=== PATIENT | male | born 1950 | race African-American/Black ===

== ENCOUNTER 2016-06-11 20:21 | Inpatient (IN) | payer MEDICARE ==
[~2016-06-11] VITALS: Ht 172.7 cm; Wt 62.5 kg
[~2016-06-11 20:21] MED LIST: ACETAMINOPHEN500 M1 PO; ASPIRIN81 MG; AZOPT 1% OPHT D10 ML EACH EYE; BETIMOL15 ML EACH EYE; CALMOSEPTINE OI71 GM TOPICAL; CARDURA2 MG PO; CELLCEPT250 MG PO; CLARITIN 10 MG10 MG PO; COMBIGAN OPHT DR5 ML EACH EYE; COREG 3.1253.125 MG PO; FAMOTIDINE10 MG; FAMOTIDINE10 MG PO; GLUCAGEN1 MG/VIAL; GLUCAGEN1 MG/VIAL PO; HUMULIN N100 U/ML SC; HYDRALAZINE HCL25 MG PO; IMODIUM2 MG PO; K-DUR20 MEQ PO; LASIX80 MG PO; LEVEMIR100 U/M1; LEVEMIR100 U/M1 SC; MAG-OX 400 MG400 MG PO; MEGACE40 MG PO; METOCLOPRAM5 MG/5 ML PO; METOLAZONE5 MG PO; MIDODRINE HCL5 MG PO; MUPIROCIN22 GM TOPICAL; NEPHRO-VITE RX1 TAB PO; NOVOLIN N100 U/ML SC; NOVOLIN N100 U/ML SQ; NOVOLOG100 U/M1 SC; PHOSLO667 MG PO; PLAVIX75 MG PO; REGLAN5 MG PO; REMERON15 MG PO; RENVELA0.8 GM PO; RENVELA800 MG PO; SODIUM BICARBO325 MG PO; SYSTANE 0.3-0.4%5 ML EACH EYE; TACROLIMUS ANHYD1 MG PO; XALATAN 0.0052.5 ML EACH EYE; ZOCOR10 MG PO; ZOLOFT25 MG PO
[2016-06-11 22:00] VITALS: BP 131/48
--- NOTE | 2016-06-11 22:20 | NUR ---
PT ARRIVED VIA BED WITH EMS STAFF. DISORIENTED TO PLACE, TIME, AND SITUATION. FOLLOWS COMMANDS, EXPERIENCES PERIODS OF CONFUSION. VSS, SBP 110-120'S. LT ARM FISTULA CDI WITH BRUIT AND THRILL PRESENT. LT IJ CDI. LT HAND WITH ALL FINGERS MISSING EXCEPT THUMB. BILATERAL LEG AMPUTATION. PT REPOSITIONED FOR COMFORT. DENIES PAIN AT THIS TIME. VOICES NO FURTHER NEEDS. ROOM VISIBLE FROM NURSES STATION. CPOC.
[2016-06-11 22:21] VITALS: BP 106/45; BMI 29.9
[2016-06-11 23:00] VITALS: BP 134/53
[2016-06-11 23:55] LABS: BASOPHILS 0.1 % (0.0-2.0); EOSINOPHILS 0.3 % (0-7); HEMATOCRIT 31.1 % (42.0-54.0); HEMOGLOBIN 9.7 g/dL (13.5-17.5); IMMATURE GRANULOCYTES 0.2 % (0-5); LYMPHOCYTES 12.6 % (15-50); MCH 23.7 pg (26.0-34.0); MCHC 31.2 g/dL (31.0-37.0); MEAN PLATELET VOLUME 8.7 fL (7.4-10.4); MONOCYTES 11.1 % (2-11); NEUTROPHILS 75.7 % (40-80); PLATELET COUNT 215 10x3/uL (130-400); RBC 4.09 10x6/uL (4.20-6.10); WBC 8.8 10x3/uL (4.8-10.8)
[2016-06-12] VITALS (24 sets, daily range): BP systolic 106–174; BP diastolic 39–129; Ht 172.7 cm; Wt 62.5 kg
[2016-06-12 00:24] LABS: ALBUMIN 2.1 g/dL (3.4-5.0); ANION GAP 15.3 mmol/L (8-16); BILIRUBIN - TOTAL 0.62 mg/dL (0.2-1.3); CALCIUM 7.4 mg/dL (8.5-10.1); CARBON DIOXIDE 25.1 mmol/L (21.0-32.0); CREATININE - SERUM 2.5 mg/dL (0.6-1.3)
[2016-06-12 00:25] LABS: POTASSIUM - SERUM 2.4 mmol/L (3.5-5.1)
--- NOTE | 2016-06-12 00:45 | NUR ---
REC'D CALLBACK FROM LINDSEY REGARDING RECENT LAB RESULTS, NEW ORDERS REC'D.
--- NOTE | 2016-06-12 01:40 | NUR ---
PT SLEEPING QUIETLY WITH NO S/S OF ACUTE DISTRESS. VSS, SBP 120-130'S. NO S/S OF PAIN. PT REPOSITIONED TO R SIDE. VOICES NO FURTHER NEEDS AT THIS TIME. CPOC.
--- NOTE | 2016-06-12 05:25 | NUR ---
PT RESTING QUIETLY WITH VSS, NO C/O PAIN AT THIS TIME. PT REPOSITIONED TO L SIDE. DENIES FURTHER NEEDS AT THIS TIME. ROOM VISIBLE FROM NURSES STATION. CPOC.
[2016-06-12 06:05] LABS: CALCIUM 7.8 mg/dL (8.5-10.1); CARBON DIOXIDE 23.7 mmol/L (21.0-32.0); CREATININE - SERUM 2.6 mg/dL (0.6-1.3)
[2016-06-12 06:06] LABS: POTASSIUM - SERUM 2.7 mmol/L (3.5-5.1)
[2016-06-12 11:02] LABS: ANION GAP 13.4 mmol/L (8-16); CALCIUM 7.5 mg/dL (8.5-10.1); CARBON DIOXIDE 24.5 mmol/L (21.0-32.0); CREATININE - SERUM 2.9 mg/dL (0.6-1.3)
[2016-06-12 11:10] LABS: POTASSIUM - SERUM 2.9 mmol/L (3.5-5.1)
--- NOTE | 2016-06-12 14:10 | NUR ---
REPORTED K LEVEL OF 2.[address] PORTILLO. ORDERS REC'D FOR KCL 40 MEQ IV X1 DOSE.
--- NOTE | 2016-06-12 15:35 | NUR ---
AWAKES EASILY TO VERBAL STIMULI, SKIN WARM AND DRY. HAS LEGS ON LOWER LEGS. REMOVED LEGS. NO OPEN SKIN AREAS NOTED. ABLE TO HELP FEED SELF. PATIENT IS LEGALLY BLIND, USES HANDS TO FEEL AND FIND FOOD AND FLUIDS TO DRINK. COOPERATIVE. LEFT UPPER ARM FISTUAL DRESSING DRY AND INTACT. BRUIT AUDIBLE. RIGHT WITH OUT FINGERS DOES HAVE THUMB. ASSIST WITH TURNING SELF FROM SIDE. NO URINE MADE AT THIS TIME. ABD SOFT WITH HYPOACTIVE BOWEL SOUNDS. LUNGS CONGESTED BUT GOOD PRODUCTIVE COUGH NOTED. MONITOR SR WITH MULTIPLE PVC AND PAC. DENIES ANY PAIN.
--- NOTE | 2016-06-12 16:53 | NUR ---
FEED ALL MEALS CAN ASSIST SOME. LEFT UPPER ARM FISTULA WITH GOOD BRUIT. MONITOR SR DOES HAVE FREQ PVC AND PAC. ASSIST WITH TURNING. NO DISTRESS. GOOD COUGH WET. GOOD APPETITE. NAPPING THIS AFTERNOON. NO DISTRESS. RESP DEEP AND REGULAR.
--- NOTE | 2016-06-12 19:33 | NUR ---
PT AOX4, DOES HAVE SOME BRIEF PERIODS OF CONFUSION. VSS, DENIES PAIN. PT REPOSITIONED FOR COMFORT. LUNG SOUNDS CRACKLES/DIMINISHED. SPO2 97 ON 1L NC. NO S/S OF ACUTE DISTRESS AT THIS TIME. FRESH WATER TO BEDSIDE. VOICES NO FURTHER NEEDS AT THIS TIME. CALL LIGHT AND BEDSIDE TABLE WITHIN PT REACH. CPOC.
--- NOTE | 2016-06-12 21:30 | NUR ---
NO VISITORS AT THIS TIME. VSS, NO C/O PAIN. PT REPOSITIONED FOR COMFORT WITH A PARTIAL LINEN CHANGE COMPLETE. RESTING COMFORTABLY AT THIS TIME WITH NO FURTHER NEEDS VOICED. ROOM VISIBLE FROM NURSES STATION. CPOC.
--- NOTE | 2016-06-12 23:35 | NUR ---
REASSESSMENT COMPLETE, SEE FLOWSHEET FOR ALL FINDINGS. NO CHANGES NOTED AT THIS TIME. VSS, DENIES PAIN. REPOSITIONED TO L SIDE. DENIES FURTHER NEEDS AT THIS TIME. ROOM VISIBLE FROM NURSES STATION. CPOC.
[2016-06-13] VITALS (10 sets, daily range): BP systolic 100–146; BP diastolic 44–68
--- NOTE | 2016-06-13 01:35 | NUR ---
PT SLEEPING QUIETLY WITH VSS, NO S/S OF ACUTE DISTRESS. NO CHANGES AT THIS TIME. ROOM VISIBLE FROM NURSES STATION. CPOC.
[2016-06-13 04:54] LABS: BASOPHILS 0.2 % (0.0-2.0); EOSINOPHILS 1.6 % (0-7); HEMATOCRIT 32.6 % (42.0-54.0); HEMOGLOBIN 10.1 g/dL (13.5-17.5); IMMATURE GRANULOCYTES 0.2 % (0-5); LYMPHOCYTES 40.1 % (15-50); MCH 23.4 pg (26.0-34.0); MCV 75.5 fL (80.0-100.0); MEAN PLATELET VOLUME 9.3 fL (7.4-10.4); MONOCYTES 12.2 % (2-11); NEUTROPHILS 45.7 % (40-80); PLATELET COUNT 227 10x3/uL (130-400); RBC 4.32 10x6/uL (4.20-6.10); RDW 18.8 % (11.5-14.5); WBC 5.5 10x3/uL (4.8-10.8)
[2016-06-13 05:13] LABS: ANION GAP 10.7 mmol/L (8-16); CALCIUM 7.3 mg/dL (8.5-10.1); CREATININE - SERUM 3.1 mg/dL (0.6-1.3); MAGNESIUM - SERUM 1.7 mg/dL (1.8-2.4); PHOSPHOROUS 1.8 mg/dL (2.5-4.9)
[2016-06-13 05:15] LABS: POTASSIUM - SERUM 2.7 mmol/L (3.5-5.1)
--- NOTE | 2016-06-13 06:00 | NUR ---
CRITICALLY LOW K+ 2.7, LINDSEY PAGED.
--- NOTE | 2016-06-13 06:13 | NUR ---
REC'D CALLBACK FROM TRISTAN PORTILLO REC'D.
--- NOTE | 2016-06-13 09:52 | NUR ---
ATTEMPTED TO COLLECT URINE VIA IN AND OUT COLLECTION, EXPLAINED TO PAT AND HE REFUSED STATING, " I DONT LET THEM DO THAT, ITS TOO HARD, I TOLD THEM THAT LAST NIGHT". WILL CONT TO NADIRA KOHLI.
--- NOTE | 2016-06-13 10:15 | NUR ---
0700 RECEIVED PT LYING IN BED ON BACK OPENS EYES TO SPEECH, PT IS BLIND, ALERT ORIENTED ABLE TO VOICE ALL WANTS AND NEEDS ANSWERS QUESITONS APPROPRIATELY. LUNGS CLEAR TO AUSC, HAS A COUGH NO SPUTUM NOTED. VSS 02 SATS 98% ON 1L NC. LEFT IJ WITH A K+ RIDER INFUSING. NO COMPLAINTS, HAS TRANSFER ORDERS TO BE MOVED TO THE FLOOR. WILL CONT TO MONITOR CLOSELY.
[2016-06-13 11:36] LABS: ANION GAP 10.8 mmol/L (8-16); CALCIUM 7.6 mg/dL (8.5-10.1); CARBON DIOXIDE 24.4 mmol/L (21.0-32.0); CREATININE - SERUM 3.3 mg/dL (0.6-1.3)
[2016-06-13 11:37] LABS: POTASSIUM - SERUM 4.2 mmol/L (3.5-5.1)
--- NOTE | 2016-06-13 15:00 | NUR ---
RECEIVED BED ON 2105, PT HAD BATH AND LINENS CHANGED, REPORT CALLED TO CAT ALL QUESTIONS ANSWERED PT MOVED TO THE FLOOR NO COMPLAINTS AND NO DISTRESS NOTED.
--- NOTE | 2016-06-13 20:13 | NUR ---
RESUMED CARE OF PT, LYING IN BED WITH EYES CLOSED RESPIRATIONS EVEN AND UNLABOREDON 1LPM VIA NC. 78 SR ON TELEMETRY. LEFT IJ SALINE LOCKED. CALL LIGHT IN REACH. WILL CONTINUE TO MONITOR. SEE NURSE ASSESSMENT.
[2016-06-14] VITALS (7 sets, daily range): BP systolic 114–136; BP diastolic 45–62
--- NOTE | 2016-06-14 02:46 | NUR ---
BED BATH AND LINENS CHANGED. PROSTHETICS REMOVED AND PLACED IN WINDOW TEN. REPOSITIONED TO RIGHT SIDE. CALL LIGHT IN REACH. WILL CONTINUE TO MONITOR.
--- NOTE | 2016-06-14 05:55 | NUR ---
AM LAB OBTAINED, NO CHANGES FROM PREVIOUS ASSESSMENT.
[2016-06-14 05:56] LABS: BASOPHILS 0.2 % (0.0-2.0); EOSINOPHILS 1.1 % (0-7); HEMATOCRIT 31.5 % (42.0-54.0); HEMOGLOBIN 9.7 g/dL (13.5-17.5); IMMATURE GRANULOCYTES 0.2 % (0-5); LYMPHOCYTES 42.3 % (15-50); MCH 23.6 pg (26.0-34.0); MCHC 30.8 g/dL (31.0-37.0); MCV 76.6 fL (80.0-100.0); MEAN PLATELET VOLUME 9.1 fL (7.4-10.4); MONOCYTES 10.3 % (2-11); NEUTROPHILS 45.9 % (40-80); PLATELET COUNT 186 10x3/uL (130-400); RBC 4.11 10x6/uL (4.20-6.10); RDW 18.9 % (11.5-14.5); WBC 5.6 10x3/uL (4.8-10.8)
[2016-06-14 06:48] LABS: CALCIUM 7.4 mg/dL (8.5-10.1); CARBON DIOXIDE 24.2 mmol/L (21.0-32.0); CREATININE - SERUM 3.7 mg/dL (0.6-1.3); MAGNESIUM - SERUM 1.8 mg/dL (1.8-2.4); POTASSIUM - SERUM 4.2 mmol/L (3.5-5.1)
[2016-06-14 06:49] LABS: PHOSPHOROUS 2.4 mg/dL (2.5-4.9)
--- NOTE | 2016-06-14 13:25 | NUR ---
LETHARGIC. AROUSES TO STIMULI AND VOICE. UNABLE TO SIGN CONSENTS FOR FISTULOGRAM OF LEFT ARM DUE TO BLINDNESS. VERBAL CONSENT OBTAINED, WITNESSED BY EAMON ARRIETA. CONSENTS ON CHART. REQUEST TO BE LEFT A LONE TO REST. BED LOCKED AND LOW. CALL LIGHT IN REACH. TWO SIDERAILS UP. BED ALARM ON.
--- NOTE | 2016-06-14 13:48 | NUR ---
LOVENOX INJ NOT ORDERED DUE TO PLANNED SURGERY PER . RISK FOR BLEEDING. CONTINUE PLAN OF CARE AND SAFETY PRECAUTIONS.
--- NOTE | 2016-06-14 16:30 | NUR ---
Patient Name: RUBIN MCFARLAND Admission Status: Elective Accout number: [id number] Admission Date: 06-11-2016 : 1950 Admission Diagnosis: Attending: KENDRA Current LOS: 3 Anticipated DC Date: Planned Disposition: Nursing Facility MILE Cert Primary Insurance: MEDICARE A & B PLANNED EXTERNAL PROVIDER: [facility], HALF-WAY MEDICAID BED Discharge Planning Comments: * Is the patient Alert and Oriented? Yes 0 * How many steps to enter\exit or inside your home? NONE 0 * PCP [facility] 0 * Pharmacy [facility] 0 * Preadmission Environment [facility] 0 * Facility Name [facility] 0 * ADLs Total Dependent 0 * Equipment Other 0 * Other Equipment BILATERAL PROSTESIS - LOWER LEGS 0 * List name and contact numbers for known caregivers / representatives who currently or will assist patient after discharge: JUANITA REVELES, FRIEND, 0 * Community resources currently utilized None 0 * Please name any agencies selected above. NONE 0 * Additional services required to return to the preadmission environment? No 0 * Can the patient safely return to the preadmission environment? Yes 0 * Has this patient been hospitalized within the prior 30 days at any hospital? No 0 CM MET WITH PT IN ROOM TO DISCUSS DISCHARGE PLANNING AND NEEDS. PT REPORTS LIVING AT [facility] IN [place]. PT REPORTS FEELING SAFE THERE AND WILL RETURN THERE AT DISCHARGE. PT REPORTS THAT [facility] HIM UP BUT WILL NEED TO BRING HIS WHEELCHAIR, PT HAS HIS LEGS WITH HIM HERE AT THE HOSPITAL. FOR DISCHARGE, FAX DISCHARGE INFORMATION TO [facility] AT [phone]. NURSE REPORT TO BE CALLED TO [facility], . [facility] TO [facility]RANGE VAN TRANSPORTATION. Saddle Maker: Anjum Archer
--- NOTE | 2016-06-14 17:27 | NUR ---
TAKEN TO PROCEDURE VIA BED. PRE-OP MEDICATIONS GIVEN. CONTINUE PLAN OF CARE AND SAFETY PRECAUTIONS.
--- NOTE | 2016-06-14 18:35 | NUR ---
500MG/100ML BAG VANCOMYCIN INFUSING UPON ARRIVAL TO PACU
--- NOTE | 2016-06-14 19:30 | NUR ---
EYES CLOSED, RESP UNLAB WITH O2 @ 2L VIA NC IN USE. LEGALLY BLIND, LEFT IJTL INTACT AND LOCKED. TELEMETRY SHOWING HR SR RESERVING LEFT ARM REVISED FISTULA TODAY,LEFT HAND WITH ONLY THUMB NOTED. BILAT BKA NOTED., DOES HAVE BILAT PROSTHESIS. HOB UP SR UP X2, C/L INREACH. CONTINUE TO MONITOR.
[2016-06-15] VITALS: BP 106/77
--- NOTE | 2016-06-15 02:29 | NUR ---
EYES CLOSED, RESP UNLAB WITH NO S/S OF ACUTE DISTRESS NOTED. C/L IN REACH. CONTINUE TO MONITOR.
[2016-06-15 04:00] VITALS: BP 125/65
[2016-06-15 06:26] LABS: BASOPHILS 0.3 % (0.0-2.0); EOSINOPHILS 1.2 % (0-7); HEMATOCRIT 33.3 % (42.0-54.0); HEMOGLOBIN 10.3 g/dL (13.5-17.5); IMMATURE GRANULOCYTES 0.3 % (0-5); LYMPHOCYTES 43.6 % (15-50); MCH 23.6 pg (26.0-34.0); MCHC 30.9 g/dL (31.0-37.0); MCV 76.4 fL (80.0-100.0); MEAN PLATELET VOLUME 9.7 fL (7.4-10.4); MONOCYTES 11.5 % (2-11); NEUTROPHILS 43.1 % (40-80); PLATELET COUNT 188 10x3/uL (130-400); RBC 4.36 10x6/uL (4.20-6.10); RDW 18.4 % (11.5-14.5); WBC 6.8 10x3/uL (4.8-10.8)
[2016-06-15 06:41] LABS: ANION GAP 14.2 mmol/L (8-16); CALCIUM 7.9 mg/dL (8.5-10.1); CREATININE - SERUM 4.3 mg/dL (0.6-1.3); POTASSIUM - SERUM 5.2 mmol/L (3.5-5.1)
--- NOTE | 2016-06-15 07:25 | NUR ---
0700- DR. ZHOU ON UNIT. ASKED ME TO RECHECK PTS B/S AND GIVE HIME SOMETHING TO EAT AND DRINK. RECHECKED PTS B/S IT WAS 105. GAVE PT ORANGE JUICE. PT COULD TELL ME HIS NAME AND . PT COULD COMMUNICATIONS OPERATOR MY HANDS. STATED HE FELT FINE. INFORMED DR. ZHOU OF B/S HE STATED OK. NO NEW ORDERS GIVEN.
--- NOTE | 2016-06-15 07:45 | NUR ---
AM ROUNDING- PT LAYING IN BED ON BACK. DENIES ANY NEED AT CURRENT TIME. PT IS LEGALLY BLIND IN BILATERAL EYES. FSBS ACHS, 109 THIS AM THEN RECHECKED, 105 SECOND TIME. DID NOT COVER WITH SCHEDULED INSULIN DUE TO B/S BEING 105. PT HAS A AVF TO LEFT ARM THAT HE HAD REVISED YESTERDAY PER REPORT FROM LEAN MANUFACTURING LEADER NURSE DARLING. BILATERAL BKA SEEN. LEFT HAND IS MISSING FOUR DIGITS. IV SEEN TO LEFT IJ THAT IS SALINE LOCKED AND PATENT. ON MONITOR SHOWING SR, HR 73. PT NORMAL DIALYSIS SCHEDULE IS , , AND TUESDAY BUT DR. ZHOU STATED THIS AM THAT HE WANTED PT TO HAVE DIALYSIS TODAY. INFOMRED DR. ZHOU THAT I WOULD CALL DIALYSIS AND LET THEM KNOW. WILL CONTINUE TO MONITOR.
[2016-06-15 08:53] VITALS: BP 158/62
--- NOTE | 2016-06-15 10:38 | NUR ---
1015- PT TO DIALYSIS VIA BED.
--- NOTE | 2016-06-15 14:43 | NUR ---
PT BACK FROM DIALYSIS VIA BED.
[2016-06-15 16:08] VITALS: BP 134/52
--- NOTE | 2016-06-15 18:35 | NUR ---
PT SITTING UP IN BED ON BACK RESTING WITH EYES CLOSED. NO NEED AT CURRENT TIME. WILL CONTINUE TO MONITOR.
--- NOTE | 2016-06-15 19:30 | NUR ---
ASSESSMENT COMPLETE, DENIES NEEDS UPON AROUSAL. TURN AND REPOSITION FOR C & C Q 2HOURS RADHA WELL. LEFT IJTL INTACT AND LOCKED, LEFT UPPER ARM AVF WITH + BRUIT AND THRILL NOTED. BILAT BKA NOTED. HOB UP SR UP X2, C/L IN REACH. BED ALARM IS ON AND WORKING. CONTINUE TO MONITOR.
[2016-06-15 21:18] VITALS: BP 131/47
[2016-06-16 01:12] VITALS: BP 144/38
--- NOTE | 2016-06-16 03:47 | NUR ---
QUIET IN BED WITH EYES CLOSED, RESP UNLAB WITH O2 @ 2L NC IN PLACE, TELEMETRY IN PLACE SHOWING HR SR. NO S/S OF ACUTE DISTRESS NOTED. C/L IN REACH.
[2016-06-16 05:21] VITALS: BP 92/36
[2016-06-16 05:48] LABS: BASOPHILS 0.5 % (0.0-2.0); EOSINOPHILS 2.7 % (0-7); HEMATOCRIT 29.5 % (42.0-54.0); HEMOGLOBIN 9.2 g/dL (13.5-17.5); IMMATURE GRANULOCYTES 0.2 % (0-5); LYMPHOCYTES 42.6 % (15-50); MCH 23.7 pg (26.0-34.0); MCHC 31.2 g/dL (31.0-37.0); MEAN PLATELET VOLUME 9.9 fL (7.4-10.4); MONOCYTES 13.3 % (2-11); NEUTROPHILS 40.7 % (40-80); PLATELET COUNT 177 10x3/uL (130-400); RBC 3.88 10x6/uL (4.20-6.10); RDW 18.3 % (11.5-14.5); WBC 5.5 10x3/uL (4.8-10.8)
[2016-06-16 06:03] LABS: CALCIUM 7.7 mg/dL (8.5-10.1); CREATININE - SERUM 3.7 mg/dL (0.6-1.3)
[2016-06-16 06:05] LABS: PHOSPHOROUS 2.1 mg/dL (2.5-4.9)
--- NOTE | 2016-06-16 07:30 | NUR ---
ASSESSMENT DONE. PT SLEEPING, EASILY AROUSED. DR. NGUYEN HERE. DENIES NEEDS AT THIS TIME. STATES HE JUST WANT TO SLEEP. CALL LIGHT WITH IN REACH. WILL CONT. TO MONITOR.
[2016-06-16 08:52] VITALS: BP 107/35
--- NOTE | 2016-06-16 09:34 | NUR ---
RESP UL ON . CALL LIGHT IN REACH. WILL CONT. PLAN OF CARE.
[2016-06-16 12:17] VITALS: BP 140/43
[2016-06-16 14:53] VITALS: BP 115/35
--- NOTE | 2016-06-16 17:38 | NUR ---
PT TURNED AND REPOSITIONED. PINK PAD WET. NURSE AND MICROMATIC HONE OPERATOR CHANGED. PT DENIES NEEDS AT THIS TIME. WILL CONT. TO MONITOR.
[2016-06-16 20:00] VITALS: BP 130/42
--- NOTE | 2016-06-16 21:39 | NUR ---
PT LYING IN BED, EYES CLOSED, RESPIRATIONS EVEN AND UNLABORED. PT EASILY ROUSABLE TO VERBAL STIMULI. PT DENIES ANY NEEDS. PT IS ALERT AND ORIENTED AT THIS TIME. PT DID TAKE HIS 2100 MEDICATIONS WITHOUT DIFFICULTY. CONTINUE TO MONITOR CLOSELY. BED LOW, CALL LIGHT IN REACH, SIDE RAILS X 2, HOB 30 DEGREES, BED ALARM ON.
[2016-06-17] VITALS: BP 139/53
[2016-06-17 04:00] VITALS: BP 143/55
--- NOTE | 2016-06-17 04:47 | NUR ---
NURSE ROUNDS 20:00 - PT LYING IN BED, AWAKE, ALERT, ORIENTED, DENIES ANY NEEDS. CONTINUE TO MONITOR CLOSELY. BED LOW, CALL LIGHT IN REACH, SIDE RAILS X 2, HOB 30 DEGREES, BED ALARM ON. PT WAS INSTRUCTED ON HOW TO USE HIS CALL LIGHT, AND AGREED THAT HE WOULD CALL IF HE NEEDS ANYTHING.
--- NOTE | 2016-06-17 05:51 | NUR ---
PT LYING IN BED ON HIS RIGHT SIDE, EYES CLOSED, RESPIRATIONS EVEN AND UNLABORED. CONTINUE TO MONITOR CLOSELY. BED LOW, CALL LIGHT IN REACH, SIDE RAILS X 2, HOB 25 DEGREES.
--- NOTE | 2016-06-17 07:00 | NUR ---
RECEIVED PT REPORT. NO OTHER NEEDS AT THIS TIME. WILL CONTINUE TO MONITOR
[2016-06-17 07:51] LABS: BASOPHILS 0.2 % (0.0-2.0); EOSINOPHILS 2.5 % (0-7); HEMATOCRIT 29.4 % (42.0-54.0); HEMOGLOBIN 9.1 g/dL (13.5-17.5); IMMATURE GRANULOCYTES 0.2 % (0-5); LYMPHOCYTES 36.2 % (15-50); MCH 23.8 pg (26.0-34.0); MEAN PLATELET VOLUME 9.5 fL (7.4-10.4); MONOCYTES 13.6 % (2-11); NEUTROPHILS 47.3 % (40-80); PLATELET COUNT 201 10x3/uL (130-400); RBC 3.82 10x6/uL (4.20-6.10); RDW 18.4 % (11.5-14.5)
--- NOTE | 2016-06-17 07:59 | NUR ---
PT IS ALERT. ASSESMENT DONE PER FLOWSHEET. NO CO PAIN AT THIS TME. WILL CONTINUE TO MONITOR.
[2016-06-17] MEDS ORDERED: MIDODRINE HCL10 MG PO (08:31)
[2016-06-17 08:34] VITALS: BP 142/57
[2016-06-17] MEDS ORDERED: PHOSLO667 MG PO ×3 (08:35→14:23)
[2016-06-17] MEDS ORDERED: NOVOLIN N100 U/ML SQ ×2 (08:38→08:39)
[2016-06-17] MEDS ORDERED: PROCRIT/EP4000 UNITS SQ (08:41)
[2016-06-17 09:05] LABS: ANION GAP 14.1 mmol/L (8-16); CALCIUM 7.6 mg/dL (8.5-10.1); CARBON DIOXIDE 25.1 mmol/L (21.0-32.0); CREATININE - SERUM 4.4 mg/dL (0.6-1.3); PHOSPHOROUS 2.9 mg/dL (2.5-4.9); POTASSIUM - SERUM 4.2 mmol/L (3.5-5.1)
--- NOTE | 2016-06-17 09:26 | NUR ---
Patient Name: RUBIN MCFARLAND Encounter No: [id number] : 1950 Primary Insurance: MEDICARE A & B Anticipated DC Date: 06/17/16 Planned Disposition: Nursing Facility MILE Cert-- External Planned Provider: [facility]LONG-TERM MEDICAID BED DCP follow-up note: CM RECEIVED NOTIFICATION OF DISCHARGE FOR TODAY. CM PLACED CALL TO [facility] AND SPOKE TO MANOLO TO INFORM OF DC. MANOLO STATED THAT [facility] CAN PROVIDE TRANSPORTATION TODAY AT 2:00PM. PT'S NIECE, FARRUKH MORALES, WAS CONTACTED BY LISSY العلي CM TO INFORM OF DC. PT WITH NO VOICED DC NEEDS. NURSE TO CALL REPORT TO [facility]--[phone] [facility] WILL PROVIDE [facility] TRANSPORTATION TODAY AT 2:00PM. DC IMM PRESENTED TO AND EXPLAINED TO PT. PT IS LEGALLY BLIND AND VOICED UNDERSTANDING. IMM PLACED IN PT'S CHART. Laura Jean, RN
--- NOTE | 2016-06-17 12:07 | NUR ---
DIALYSIS TREATMENT INITIATED AT 0809 AND DISCONTINUED AT 1109. REMOVED 2000ML OF FLUID AND PROCESSED 56.7L OF BLOOD. POST VITALS: BP: 145/65, HR: 74, TEMP: 98.4, RESP: 14
--- NOTE | 2016-06-17 13:04 | NUR ---
CALLED REPORT AND SPOKE TO MANOLO AT [facility]. ASAF PARDO AT THIS TIME. WILL CONTINUE TO HANNAH.
--- NOTE | 2016-06-17 13:22 | NUR ---
NO SS OF DISTRESS. WILL CONTINUE TO MONITOR.
--- NOTE | 2016-06-18 07:11 | DS ---
PATIENT:RUBIN MCFARLAND :[birth year] MEDICAL RECORD: [id number] DISCHARGE SUMMARY ADMISSION DATE: 06/11/16 DISCHARGE DATE: 06/17/16 HISTORY: Mr. Mcfarland is an unfortunate 65-year-old black male with end-stage renal disease due to diabetes mellitus, multiple amputations, chronic custodial confinement and blindness. He is admitted following dialysis in [place] with persistent hypokalemia, hypotension and hypoglycemia. HOSPITAL COURSE: The patient's medications were adjusted. He was begun on empiric antibiotics, but all cultures were negative and there was no source of infection, found to be the cause of his symptoms. His medications and dialysis dosing were adjusted and at the time of discharge, he was back to baseline physically and mentally. He did have a fistulogram by Dr. Denny that was negative. He had adjustment of his medications and was stable at the time of discharge. He had acute dialysis without difficulty. DISCHARGE DIAGNOSES: 1. Post-dialysis hypotension and hypokalemia, resolved. 2. Hypoglycemia, resolved. 3. End-stage renal disease. 4. Peripheral vascular disease. 5. Blindness. PLAN: The patient will be discharged today after dialysis if stable. He will resume his outpatient dialysis in [place]. He will be transferred back to the custodial. DISCHARGE MEDICATIONS: Will be insulin 20 units in the morning and 12 in the evening, midodrine 10 q. 8 hours, Megace 40 daily, PhosLo 2 t.i.d. He will resume Epogen in the dialysis unit. He will have Reglan 10 a.c., Pepcid 10 mg daily, Zoloft 25 mg daily, baby aspirin daily, Zocor 20 mg daily, Plavix 75 mg daily. TRANSINT:[id number] Voice Confirmation ID: [id number] DOCUMENT ID: [id number] CC: [place] dialysis, [facility]. RUBIN NGUYEN MD at 0711 CC: [id number] DICTATION DATE: 06/17/16808 REVENUE TAX SPECIALIST: 06/17/16 0832 DIS IN 06/17/16 [address] [place] [address]
--- NOTE | 2016-07-06 11:25 | OP ---
PATIENT NAME: RUBIN MCFARLAND MEDICAL RECORD: [id number] :[birth year] LOCATION:D. D.2106 ADMISSION DATE:06/11/16 SURGEON: ROMINA MONTANA MD DATE OF OPERATION: 06/14/2016 REFERRING PHYSICIANS: Dr. Juan and Dr. Hanson. PREOPERATIVE DIAGNOSIS: Impending thrombosis or occlusion of left arm, PTFE axillary-axillary loop AV graft due to systemic hypotension and thrombophilia. POSTOPERATIVE DIAGNOSIS: Edema of the left arm and systemic hypotension leading to the clinical decrease in palpable pulsation and thrill over left arm AV graft without any areas of stenosis or thrombosis or other problems identified on this evening's radiograph. OPERATION PERFORMED: Left upper extremity AV graftogram with a single micropuncture stick done with ultrasound guidance. SURGEON: Romina Montana MD ANESTHESIA: Local 1% lidocaine and monitored anesthesia or MAC per LPN PRIVATE DUTY. PREOPERATIVE NOTE: Mr. Mcfarland is an unfortunate 65-year-old -[place] diabetic hypertensive male with end-stage renal disease on chronic hemodialysis. He lives in a fdc and came in. He was admitted to the hospital and came in with severe hypotension and indeed has chronic hypotension anyway. He was transferred here and has been in the ICU for the past couple of days and has been on a Levophed drip. When seen on rounds by Dr. Juan today, he felt there was a significant loss of palpable thrill and pulsation over the patient's left upper extremity AV axillary-axillary loop graft and asked for fistulogram. I saw the patient concurred that a fistulogram would be extremely reasonable. This graft was actually implanted I believe in December of last year and with the patient on Plavix at least has worked well without any other interventions I am aware of. PROCEDURE IN DETAIL: Under IV sedation and monitored per LPN PRIVATE DUTY, the patient was in supine position and the left arm prepped and draped in a sterile manner. I assessed the AV graft with ultrasound including duplex color examination and found that there was continuous pulsatile turbulent flow within it and I saw no areas of stenosis or thrombosis. I did an ultrasound-guided access with a micropuncture technique directed towards the arterial anastomosis and through the micropuncture cannula injected contrast while performing digital C-arm digital subtraction imaging. I found that there was excellent flow in the graft, but there was no evidence of any significant abnormality, no pseudoaneurysms. There were no areas of stenosis, no areas of venous or arterial anastomotic stenosis. I saw no problem with the arterial or venous inflow or outflow, no filling defects, etc. in these vessels. The micropuncture catheter was removed and a puncture site closed with [id number] 4-0 Prolene suture and after a brief period of direct digital pressure, that site was dressed with Avitene Ultrafoam, Tegaderm and Cavilon skin prep. The patient was then awakened and taken to the recovery room in stable condition where I have requested a blood sugar. The patient will go on back to his bed on med 2 after leaving the recovery room OPERATIVE REPORT [id number] RUBIN MCFARLAND and will continue his same preop orders, meds, diet, etc., as per nephrology. I will be seeing him back probably just on a p.r.n. basis. There was no blood loss during the procedure this evening. All sponges, instruments and needles were accounted for. No drain was used and there was no surgical specimen obtained for histopathology. TRANSINT:[id number] Voice Confirmation ID: [id number] DOCUMENT ID: [id number] ROMINA MONTANA MD at 1125 CC: RUBIN JUAN MD and LYNN HANSON MD [id number] DICTATION DATE: 06/14/161837 EP TECHNOLOGIST: 06/14/162035 DIS IN 06/17/16 [address] [place] [address]
== END 2016-06-17 15:33 | DRG 314 ==
LOC: D.ICU 20:21 → D.M2 22:10
PROVIDERS: Internal Medicine; ADMIT Internal Medicine Nephrology
PROC: B50W1ZZ Plain Radiography of Dialysis Shunt/Fistula using Low Osmolar Contrast (ICD-10-PCS; principal; 2016-06-11)
PROC: 5A1D60Z (ICD-10-PCS; 2016-06-14)
DX: T82.868A Thrombosis due to vascular prosthetic devices, implants and grafts, initial encounter (principal); N18.6 End stage renal disease; D68.59 Other primary thrombophilia; Y83.8 Other surgical procedures as the cause of abnormal reaction of the patient, or of later complication, without mention of misadventure at the time of the procedure; E11.22 Type 2 diabetes mellitus with diabetic chronic kidney disease; Z99.2 Dependence on renal dialysis; I25.10 Atherosclerotic heart disease of native coronary artery without angina pectoris; E87.6 Hypokalemia; D63.1 Anemia in chronic kidney disease; I95.9 Hypotension, unspecified; H54.0 Blindness, both eyes; E11.649 Type 2 diabetes mellitus with hypoglycemia without coma; R41.0 Disorientation, unspecified; Z89.512 Acquired absence of left leg below knee; Z89.511 Acquired absence of right leg below knee; I25.2 Old myocardial infarction

== ENCOUNTER 2016-07-16 22:18 | Inpatient (IN) | payer MEDICARE ==
[~2016-07-16] VITALS: Ht 172.7 cm; Wt 48.7 kg
[~2016-07-16 22:18] MED LIST changes: +MIDODRINE HCL10 MG PO; +PROCRIT/EP4000 UNITS SQ
[2016-07-16 22:30] VITALS: BP 90/42
--- NOTE | 2016-07-16 22:30 | NUR ---
RECIEVED FROM [facility] VIA EMS STRETCHER. PLACED ON MONITOR. SEE ASSESSMENT. RT HAND SL, SITE WITHOUT REDNESS OR EDEMA. LT AV FISTULA WITH BRUIT AND THRILL NOTED. SEAN BKA. RT KNEE WITH ABRAISION, PT STATES IT IS FROM HIS PROSTHESIS. SR ON THE MONITOR. DENIES ANY PAIN OR NEEDS AT THIS TIME.
[2016-07-16 22:42] VITALS: BP 93/37; BMI 18.6
[2016-07-16 22:45] VITALS: BP 102/47
[2016-07-16 23:00] VITALS: BP 109/61
[2016-07-16 23:15] VITALS: BP 107/52
[2016-07-16 23:30] VITALS: BP 103/40
[2016-07-17] VITALS (12 sets, daily range): BP systolic 79–124; BP diastolic 42–85; Ht 172.7 cm; Wt 48.7 kg
--- NOTE | 2016-07-17 | NUR ---
EYES CLOSED, RESP EVEN AND UNLABORED. SR ON THE MONITOR.
--- NOTE | 2016-07-17 02:45 | NUR ---
REASSESSMENT COMPLETED. DENIES ANY PAIN OR NEEDS AT THIS TIME.
[2016-07-17 04:50] LABS: BASOPHILS 0 % (0.0-2.0); EOSINOPHILS 0.4 % (0-7); HEMATOCRIT 35.6 % (42.0-54.0); HEMOGLOBIN 11.3 g/dL (13.5-17.5); IMMATURE GRANULOCYTES 0.2 % (0-5); LYMPHOCYTES 15.9 % (15-50); MCH 23.9 pg (26.0-34.0); MCHC 31.7 g/dL (31.0-37.0); MCV 75.4 fL (80.0-100.0); MEAN PLATELET VOLUME 9.7 fL (7.4-10.4); MONOCYTES 5.7 % (2-11); NEUTROPHILS 77.8 % (40-80); RBC 4.72 10x6/uL (4.20-6.10); RDW 18.4 % (11.5-14.5); WBC 4.9 10x3/uL (4.8-10.8)
[2016-07-17 04:53] LABS: PLATELET COUNT 157 10x3/uL (130-400)
--- NOTE | 2016-07-17 05:00 | NUR ---
RESTING WITH NO DISTRESS. VSS. HOB UP. C/L IN REACH. CONT CURRENT POC.
[2016-07-17 05:08] LABS: ANION GAP 14.8 mmol/L (8-16); CALCIUM 7.3 mg/dL (8.5-10.1); CARBON DIOXIDE 25.8 mmol/L (21.0-32.0)
[2016-07-17 05:11] LABS: POTASSIUM - SERUM 2.6 mmol/L (3.5-5.1)
--- NOTE | 2016-07-17 06:35 | NUR ---
SPOKE WITH DR HARDY R/T K+ LEVEL. ORDERS RECVD FOR 40 MEQ AND RECHECK IN 4 HOURS.
--- NOTE | 2016-07-17 07:15 | NUR ---
REC'ED REPORT FROM OUTGOING RN - PT LYING SUPINE IN BED WITH EYES CLOSED
--- NOTE | 2016-07-17 08:00 | NUR ---
LUCY ASSESSMENT JUSTIN KANG APRN AT BEDSIDE FOR ASSESSMENT - REC'D TRANSFER ORDES TO A LOWER LEVEL OF CARE.
--- NOTE | 2016-07-17 10:00 | NUR ---
DR. HDEZ ON UNIT FOR ASSESSMENT - CONTINUE POC
--- NOTE | 2016-07-17 11:00 | NUR ---
ASSESSMENT COMPLETE - SAND OPERATOR AWARE OF TRANSFER ORERS - IV INFILTRATED -HOLDING IV MEDICATIONS - CONT POC.
--- NOTE | 2016-07-17 16:38 | NUR ---
Late Entry [address] Jack spoke with DR Wharton for MD to MD communication. Clinical status given by primary nurse, Ally. Patient is not stable enough for transfer to [facility] at this time. Not appropriate for air or ground transportation. Late [id number] ABDULAZIZ spoke with Denice from Bed Expeditor's office. She is cognizant of MD to MD communication. patient remains on active list. Will update for 07/18/17. TC to [facility] pharmacy. CM spoke w/ pharmacy requesting patient medication list from [facility]. Nurse had been unsuccessful obtaining. Provided information regarding status and patient's presence in ICU. Received faxed copy. Provided to Ally, primary nurse.
--- NOTE | 2016-07-17 17:33 | NUR ---
TRANSFER TO 2106 - REPORT GIVEN TO EAMON MEDEL.
--- NOTE | 2016-07-17 18:05 | NUR ---
BATHED PT PRIOR TO TRANSFERR - TRANSFERRED PT VIA BED X 2 RNs TO ROOM 2107 WITH ALL BELONGINGS, MEDICATIONS, AND CHART
--- NOTE | 2016-07-17 18:12 | NUR ---
PT ARRIVED FROM ICU TO FLOOR AT THIS TIME PT LAYING IN BED EYS CLOSED AND APPERS TO BE SLEEPING NO DISTRESS OBSERVED FROM PT AT THIS TIME RESPEARATIONS EVEN AND UNLBOARED ON 2LNC BED LOW AND LOCKED CALL LIGHT IN REACH SRX2 WILL MONITOR
--- NOTE | 2016-07-17 23:00 | NUR ---
NURSE ROUNDS 19:30 - PT LYING IN BED, EYES CLOSED, RESPIRATIONS EVEN AND UNLABORED, O2 VIA NC IN PLACE. PT IS EASILY ROUSABLE TO VERBAL STIMULI. PT DENIES ANY NEEDS. CONTINUE TO MONITOR CLOSELY.
[2016-07-18] VITALS: BP 82/42
[2016-07-18 04:00] VITALS: BP 82/31
[2016-07-18 05:33] LABS: BASOPHILS 0.1 % (0.0-2.0); EOSINOPHILS 0.1 % (0-7); HEMATOCRIT 28.9 % (42.0-54.0); HEMOGLOBIN 9.2 g/dL (13.5-17.5); IMMATURE GRANULOCYTES 0.6 % (0-5); MCH 23.7 pg (26.0-34.0); MCHC 31.8 g/dL (31.0-37.0); MCV 74.5 fL (80.0-100.0); MEAN PLATELET VOLUME 9.7 fL (7.4-10.4); MONOCYTES 3.8 % (2-11); NEUTROPHILS 85.4 % (40-80); PLATELET COUNT 154 10x3/uL (130-400); RBC 3.88 10x6/uL (4.20-6.10); RDW 18.5 % (11.5-14.5)
[2016-07-18 05:35] LABS: WBC 13.9 10x3/uL (4.8-10.8)
[2016-07-18 05:54] LABS: ANION GAP 15.4 mmol/L (8-16); CALCIUM 7.9 mg/dL (8.5-10.1); CARBON DIOXIDE 25.4 mmol/L (21.0-32.0); CREATININE - SERUM 3.8 mg/dL (0.6-1.3); MAGNESIUM - SERUM 1.6 mg/dL (1.8-2.4); VANCOMYCIN - RANDOM 7.7 ug/mL (10.0-20.0)
[2016-07-18 05:55] LABS: PHOSPHOROUS 1.2 mg/dL (2.5-4.9); POTASSIUM - SERUM 2.8 mmol/L (3.5-5.1)
--- NOTE | 2016-07-18 05:58 | NUR ---
CRITICAL LABS RECEIVED K+ 2.8 PH 1.2 LOW MG @ 1.6 WILL NOTIFY RENAL DARY
[2016-07-18 07:00] VITALS: BP 109/43
[2016-07-18 11:56] VITALS: BP 119/43
--- NOTE | 2016-07-18 13:59 | NUR ---
PT LAYING IN BED NO DISTRESS OBSERVED CALL LIGHT IN REACH SRX2 IVP FLUIDS INFUSING ORDERED NO DISTRESS OBSERVED WILL MONITOR
--- NOTE | 2016-07-18 14:59 | NUR ---
PT LAYING IN BED NO DISTRESS OBSERVED AT THIS TIME CALL LIGHT IN REACH SRX2 BED LOW AND LOCKED NO DISTRESS OBSERVED IVP INFUSING ORDERED
--- NOTE | 2016-07-18 15:54 | NUR ---
PT LAYING IN BED TURNED Q2H BY FINISHING TECHNICIAN AT BEDSIDE NO DISTRESS OBSERVED CALL LIGHT IN REACH BED LINENS CHANGED AND BED BATH GIVEN BY FINISHING TECHNICIAN WILL CONTINUE TO MONITOR
[2016-07-18 16:00] VITALS: BP 89/35
--- NOTE | 2016-07-18 18:19 | NUR ---
PT LAYING IN BED NO DISTRESS OBSERVED, PT SWALLOW EVALU DONE AND PT PLACED ON NECTER THICK LIQUID AND PUREED DIET. WILL MONITOR
--- NOTE | 2016-07-18 19:17 | NUR ---
REC'D IN BED. EYES CLOSED RESP. DEEP AND EVEN.WILL CONTINUE TO MONITOR FOR ANY CHGES. AND FOLLOW CURRENT PLAN OF CARE.
[2016-07-18 20:00] VITALS: BP 114/48; BP 93/35
--- NOTE | 2016-07-18 20:32 | NUR ---
1944)02 SATS 68%.NO RESP.NO RESP. DISTRESS OBSERVED.02 INCREASED FROM 2.5L TO 3L/NC (1999)RECHECKED 91% VIN FROM RESP. HERE. WILL CONTINUE TO OBSERVE FOR ANY CHGES AND FOLLOW CURRENT PLAN OF CARE
[2016-07-19] VITALS: BP 91/29
--- NOTE | 2016-07-19 00:22 | NUR ---
CERTIFIED NURSING ASSISTANT INSTRUCTOR AT BEDSIDE FOR VS. NEEDS ADDRESSED, CALL LIGHT IN REACH. WILL CONT TO MONITOR.
--- NOTE | 2016-07-19 00:54 | NUR ---
I SPOKE WITH ROSY AT [facility] ABOUT PTS CODE STATUS. SHE STATED PT IS A "DNR" AND IS TO FAX A COPY OF THE ORDER TO US FOR HIS CHART. PT REMAINS HYPOTENSIVE AND LETHARGIC. WILL CONTINUE TO ASSIST JOSE-SERVICE PLANNER, WITH PTS CARE. WILL CONTINUE TO MONITOR CLOSELY.
[2016-07-19 04:00] VITALS: BP 93/27
[2016-07-19 05:09] LABS: BASOPHILS 0.1 % (0.0-2.0); EOSINOPHILS 1.5 % (0-7); HEMATOCRIT 29.6 % (42.0-54.0); HEMOGLOBIN 9.5 g/dL (13.5-17.5); IMMATURE GRANULOCYTES 0.6 % (0-5); LYMPHOCYTES 9.7 % (15-50); MCH 23.8 pg (26.0-34.0); MCHC 32.1 g/dL (31.0-37.0); MONOCYTES 3.6 % (2-11); NEUTROPHILS 84.5 % (40-80); PLATELET COUNT 137 10x3/uL (130-400); RDW 18.6 % (11.5-14.5); WBC 12.5 10x3/uL (4.8-10.8)
[2016-07-19 05:18] LABS: ANION GAP 18.5 mmol/L (8-16); CALCIUM 7.4 mg/dL (8.5-10.1); CARBON DIOXIDE 23.8 mmol/L (21.0-32.0); CREATININE - SERUM 4.6 mg/dL (0.6-1.3); MAGNESIUM - SERUM 1.6 mg/dL (1.8-2.4); VANCOMYCIN - RANDOM 19.7 ug/mL (10.0-20.0)
[2016-07-19 05:20] LABS: PHOSPHOROUS 3.4 mg/dL (2.5-4.9); POTASSIUM - SERUM 3.3 mmol/L (3.5-5.1)
--- NOTE | 2016-07-19 07:32 | NUR ---
RECEIVED PT REPORT. WILL CONTINUE PLAN OF CARE. NO OTHER NEEDS AT THIS TIME. WILL CONTINUE TO [facility]
[2016-07-19 07:42] VITALS: BP 125/29
--- NOTE | 2016-07-19 10:36 | NUR ---
PT IS ALERT. ASSESSMENT DONE PER FLOWSHEET. NO OTHER NEEDS AT THIS TIME. WILL CONTINUE TO MONITOR.
[2016-07-19 11:50] VITALS: BP 93/35
[2016-07-19] MEDS ORDERED: MEGACE400 MG/10 PO (11:54)
[2016-07-19] MEDS ORDERED: POTASSIUM20 MEQ/15 PO (11:56)
[2016-07-19] MEDS ORDERED: ZOLOFT50 MG PO (11:57)
[2016-07-19] MEDS ORDERED: PLAVIX75 MG PO (11:58)
[2016-07-19] MEDS ORDERED: REMERON15 MG PO (11:58)
[2016-07-19] MEDS ORDERED: MIDODRINE HCL5 MG PO (12:00)
[2016-07-19] MEDS ORDERED: TIMOPTIC 0.5 % O5 ML EACH EYE (12:05)
--- NOTE | 2016-07-19 12:47 | NUR ---
Nutrition follow-up: Diet: puree with honey thick liquids PO intake remains poor at this time Labs reviewed Wt: 118# -> 4# weight loss since admit Glucose running very high - 200 mg/dl>; some > 300 mg/dl Pt now diagnosed with aspiration pneumonia. Pt is not meeting est nutritional needs with current po intake Physician may need to consider TF to increase kcal/protein intake. Pt is now assessed with severe malnutrition of chronic illness R/T ESRD, CHF AEB ~3% weight loss in 1 week ( 122# @ admit 07/16/16 -> now 118#); < 50% intake of estimated energy needs for > 5 days; noted reduced physician office assistant strength. Will continue to provide food choices with selective menus and honor food preferences. RDN following.
--- NOTE | 2016-07-19 13:17 | NUR ---
PT RESTING NO SS OF DISTRESS AT THIS TIME.
[2016-07-19 16:01] VITALS: BP 111/55
--- NOTE | 2016-07-19 18:17 | NUR ---
Mr. Grimm had bedside hemodialysis today via his left upper arm av graft. Average blood flow was 300 mls/minute. Net fluid removed was 1500 mls. Post vital signs were: B/P:117/59/ HR:87, Temp:97.3, Resps:18.
[2016-07-19 20:00] VITALS: BP 109/43
--- NOTE | 2016-07-19 21:30 | NUR ---
PATIENT RESTING IN BED WITH EYES CLOSED. NO SIGNS OF DISTRESS NOTED. RESPIRATIONS EVEN AND UNLABORED. AROUSES EASILY TO VOICE. DENIES ANY NEEDS AT THIS TIME. BED LOW. CALL LIGHT IN REACH.
--- NOTE | 2016-07-19 23:38 | NUR ---
COLD ROLL CATCHER AT BEDSIDE FOR VS, NEEDS ADDRESSED AT THIS TIME. CALL LIGHT IN REACH. CONT TO MONITOR.
[2016-07-20] VITALS: BP 112/35
[2016-07-20 04:00] VITALS: BP 102/33
[2016-07-20 05:32] LABS: BASOPHILS 0.2 % (0.0-2.0); EOSINOPHILS 2.3 % (0-7); HEMATOCRIT 30.8 % (42.0-54.0); HEMOGLOBIN 9.8 g/dL (13.5-17.5); IMMATURE GRANULOCYTES 0.6 % (0-5); LYMPHOCYTES 14.7 % (15-50); MCH 23.8 pg (26.0-34.0); MCHC 31.8 g/dL (31.0-37.0); MCV 74.9 fL (80.0-100.0); MEAN PLATELET VOLUME 9.8 fL (7.4-10.4); MONOCYTES 4.9 % (2-11); NEUTROPHILS 77.3 % (40-80); RBC 4.11 10x6/uL (4.20-6.10); RDW 18.8 % (11.5-14.5)
[2016-07-20 05:54] LABS: ANION GAP 16.2 mmol/L (8-16); CALCIUM 7.7 mg/dL (8.5-10.1); CARBON DIOXIDE 26.9 mmol/L (21.0-32.0); CREATININE - SERUM 3.6 mg/dL (0.6-1.3); MAGNESIUM - SERUM 1.7 mg/dL (1.8-2.4); POTASSIUM - SERUM 3.1 mmol/L (3.5-5.1); VANCOMYCIN - RANDOM 15.9 ug/mL (10.0-20.0)
[2016-07-20 05:56] LABS: PHOSPHOROUS 2.1 mg/dL (2.5-4.9)
[2016-07-20 05:57] LABS: PLATELET COUNT 109 10x3/uL (130-400); WBC 8.7 10x3/uL (4.8-10.8)
[2016-07-20 07:52] VITALS: BP 105/37
--- NOTE | 2016-07-20 08:14 | NUR ---
received pt report. no other needs at this time. will continue plan of care. no other needs at this time. will continue to monitor.
--- NOTE | 2016-07-20 10:37 | NUR ---
Patient Name: RUBIN MCFARLAND Admission Status: Elective Accout number: [id number] Admission Date: 07-16-2016 : 1950 Admission Diagnosis: Attending: ANTONIO Current LOS: 4 Anticipated DC Date: Planned Disposition: Nursing Facility MILE Cert Primary Insurance: MEDICARE A & B PLANNED EXTERNAL PROVIDER: [facility], [place] CARE MEDICAID BED Discharge Planning Comments: * Is the patient Alert and Oriented? Yes 0 * How many steps to enter\exit or inside your home? NONE 0 * PCP DR. MCGOWAN 0 * Pharmacy [facility] 0 * Preadmission Environment [facility] 0 * Facility Name [facility] 0 * ADLs Total Dependent 0 * Equipment Other 0 * Other Equipment ALL MEDICAL EQUIPMENT PROVIDED BY NURSING FACILITY 0 * List name and contact numbers for known caregivers / representatives who currently or will assist patient after discharge: SHAVON LAN, [place] [phone] JUANITA REVELES, MOTHER, 0 * Community resources currently utilized Other 0 * Please name any agencies selected above. OUTPATIENT DIALYSIS, [facility], T/T/S, 1100AM ASSISTED VAN TRANSPORTATION 0 * Additional services required to return to the preadmission environment? No 0 * Can the patient safely return to the preadmission environment? Yes 0 * Has this patient been hospitalized within the prior 30 days at any hospital? No 0 CM MET WITH PT IN ROOM TO DISCUSS DISCHARGE PLANNING AND NEEDS. PT REPORTS LIVING AT [facility] AND WILL RETURN THERE AT DISCHARGE. PT SEEMED VERY EXHAUSTED AND SLEEPY, DENIES NEEDS. PT IS LEGALLY BLIND. PT DOES NOT HAVE HIS LEGS OR WHEELCHAIR FROM THE ASSISTED. FOR DISCHARGE, FAX DISCHARGE INFORMATION TO [facility] AT [phone]. NURSE REPORT TO BE CALLED TO [facility], . [facility] TO ARRANGE VAN TRANSPORTATION. Flour Tester: Anjum Archer
[2016-07-20 11:34] VITALS: BP 102/34
--- NOTE | 2016-07-20 12:26 | NUR ---
NO SS OF DISTRESS AT THIS TIME. WILL CONTINUE TO MONITOR.
[2016-07-20 16:05] VITALS: BP 131/41
--- NOTE | 2016-07-20 19:25 | NUR ---
ASSESSMENT COMPLETE, PT IN BED RESTING, DENIES PAIN OR NEEDS, BED LOW, CL IN REACH, WILL CONT TO MONITOR.
[2016-07-20 20:00] VITALS: BP 119/50
--- NOTE | 2016-07-20 21:21 | NUR ---
HS MEDS GIVEN CRUSHED IN APPLE SAUCE. PT DENIES NEEDS, BED LOW, CL IN REACH.
--- NOTE | 2016-07-20 23:43 | NUR ---
MERCERIZING RANGE CONTROLLER AT BEDSIDE FOR VS, NEEDS ADDRESSED. CALL LIGHT IN REACH.CONT TO MONITOR.
[2016-07-21] VITALS: BP 114/41
[2016-07-21 04:00] VITALS: BP 114/58
[2016-07-21 06:58] LABS: BASOPHILS 0.2 % (0.0-2.0); EOSINOPHILS 2.1 % (0-7); HEMATOCRIT 30.7 % (42.0-54.0); HEMOGLOBIN 9.8 g/dL (13.5-17.5); IMMATURE GRANULOCYTES 0.9 % (0-5); LYMPHOCYTES 19.6 % (15-50); MCH 23.8 pg (26.0-34.0); MCHC 31.9 g/dL (31.0-37.0); MCV 74.7 fL (80.0-100.0); MEAN PLATELET VOLUME 10.1 fL (7.4-10.4); MONOCYTES 11.6 % (2-11); NEUTROPHILS 65.6 % (40-80); PLATELET COUNT 122 10x3/uL (130-400); RBC 4.11 10x6/uL (4.20-6.10); RDW 18.9 % (11.5-14.5)
[2016-07-21 07:10] LABS: ANION GAP 14.8 mmol/L (8-16); CALCIUM 7.7 mg/dL (8.5-10.1); CARBON DIOXIDE 26.7 mmol/L (21.0-32.0); CREATININE - SERUM 4.5 mg/dL (0.6-1.3); MAGNESIUM - SERUM 1.6 mg/dL (1.8-2.4); POTASSIUM - SERUM 3.5 mmol/L (3.5-5.1); VANCOMYCIN - RANDOM 15.5 ug/mL (10.0-20.0)
[2016-07-21 07:15] LABS: PHOSPHOROUS 2.7 mg/dL (2.5-4.9)
[2016-07-21 08:00] VITALS: BP 118/46
--- NOTE | 2016-07-21 08:00 | NUR ---
LETHARGIC. AROUSES TO [place]. [place]. O2 SAT 63% 3L NC. CHECK DIFFERENT FINGER O2 SAT 88% 3L NC. NOTIFY JORGE LUIS RENAL EXTENSION SERVICE ADVISOR. ASK RESPIRATORY TO ASSESS. RECIEVING DIALYSIS AT BEDSIDE. HR 78bpm. DENIES PAIN OR SOB. CONTINUE PLAN OF CARE AND SAFETY PRECAUTIONS.
--- NOTE | 2016-07-21 09:28 | NUR ---
Patient Name: RUBIN MCFARLAND Encounter No: [id number] : 1950 Primary Insurance: MEDICARE A & B Anticipated DC Date: 07-22-2016 Planned Disposition: Nursing Facility MILE Cert External Planned Provider: [facility], [employer]ODUCTION ILLUSTRATOR CARE MEDICAID BED DCP follow-up note: CM RECEIVED DISCHARGE PLANNING ORDER, FAXED UPDATE TO [facility] FOR [facility] AT [phone]. FOR DISCHARGE, FAX DISCHARGE INFORMATION TO [facility] AT [phone]. NURSE REPORT TO BE CALLED TO [facility], . PT TO TRANSPORT VIA AMBULANCE PER DOCTOR. Petroleum Sampler: Anjum Archer
[2016-07-21 12:00] VITALS: BP 123/54
--- NOTE | 2016-07-21 12:37 | NUR ---
Mr. Grimm had bedside hemodialysis today via his left upper arm av graft from 0855 until 1155. Average blood flow was 350 mls/minute. Net fluid removed was 2000 mls. A little hypotensive during treatment. Post vital signs were: B/P: 123/54, HR: 81, Temp: 97.6, Resps: 20.
--- NOTE | 2016-07-21 12:54 | NUR ---
Nutrition follow-up: Diet: consistent CHO puree with honey thick liquids PO intake ~25-50% of meals Pt is working with speech pathologist on swallowing issues FSBS are still running high +BM Wt: 119# Will continue to provide food choices and honor food preferences within diet restrictions. RDN following.
--- NOTE | 2016-07-21 15:54 | NUR ---
PATIENT PATHWAYS: [facility] TTS @ 10:45am. Med Recs forwarded. BMM Dialysis Coordinator.
[2016-07-21 16:00] VITALS: BP 98/35
[2016-07-21 21:56] VITALS: BP 132/46
[2016-07-22 01:17] VITALS: BP 118/50
--- NOTE | 2016-07-22 02:15 | NUR ---
PT RESTING WELL WITHOUT C/O OR DISTRESS NOTED. WILL CONT TO MONITOR. CALL LIGHT WITHIN REACH.
[2016-07-22 04:59] LABS: BASOPHILS 0.4 % (0.0-2.0); EOSINOPHILS 2.7 % (0-7); HEMATOCRIT 32.6 % (42.0-54.0); HEMOGLOBIN 10.4 g/dL (13.5-17.5); IMMATURE GRANULOCYTES 0.8 % (0-5); LYMPHOCYTES 29.6 % (15-50); MCH 23.9 pg (26.0-34.0); MCHC 31.9 g/dL (31.0-37.0); MCV 74.8 fL (80.0-100.0); MONOCYTES 16.3 % (2-11); NEUTROPHILS 50.2 % (40-80); RBC 4.36 10x6/uL (4.20-6.10); RDW 19.1 % (11.5-14.5); WBC 7.9 10x3/uL (4.8-10.8)
[2016-07-22 05:07] LABS: PLATELET COUNT 151 10x3/uL (130-400)
[2016-07-22 05:11] VITALS: BP 126/44
[2016-07-22 05:27] LABS: ANION GAP 12.8 mmol/L (8-16); CALCIUM 7.9 mg/dL (8.5-10.1); CARBON DIOXIDE 29.7 mmol/L (21.0-32.0); CREATININE - SERUM 3.5 mg/dL (0.6-1.3); MAGNESIUM - SERUM 1.8 mg/dL (1.8-2.4); PHOSPHOROUS 3.9 mg/dL (2.5-4.9); POTASSIUM - SERUM 3.5 mmol/L (3.5-5.1); VANCOMYCIN - RANDOM 11.1 ug/mL (10.0-20.0)
--- NOTE | 2016-07-22 07:55 | NUR ---
AM ROUNDING- PT LAYING IN BED ON BACK WITH EYES CLOSED RESTING. DNR. LEFT ARM RESERVE FOR AVF, PT DIALYZES ON M, W, AND F. BILATERAL BKA. LEGALLY BLIND AND HARD OF HEARING. NO MONITOR. IV SEEN TO RIGHT FOREARM THAT IS CURRENTLY SALINE LOCKED. ON 02 AT 4L VIA NC. NO MONITOR. FSBS ACHS, 182 THIS AM THAT WAS NOT COVERED BY BANK RECONCILIATOR NURSE BECAUSE PTS BLOOD SUGAR WAS LOW LAST NIGHT PER REPORT. PT IS SUPPOSE TO D/C TO [facility] TODAY. NO NEED AT CURRENT TIME. WILL CONTINUE TO MONITOR.
[2016-07-22 08:10] VITALS: BP 111/43
--- NOTE | 2016-07-22 09:38 | NUR ---
Patient Name: RUBIN MCFARLAND Encounter No: [id number] : 1950 Primary Insurance: MEDICARE A & B Anticipated DC Date: 07-22-2016 Planned Disposition: Nursing Facility MILE Cert External Planned Provider: [facility], [employer] CARE MEDICAID BED DCP follow-up note: CM RECEIVED DISCHARGE ORDER, CALLED AND NOTIFIED [facility] FOR [facility] AT [phone]. PT TO RETURN TO [employer] [facility] MEDICAID BED. CM FAXED DISCHARGE INFORMATION TO MAR[facility]NA TO FORWARD TO [facility] AT [phone]. CM DISCUSSED DISCHARGE AND DISCHARGE NOTICE WITH PT AND OFFERED TO CALL MEDICARE PHONE NUMBER FOR PT WITH ANY COMPLAINTS OR DISAGREEMENTS WITH DISCHARGE TODAY. PT DENIED HAVING COMPLAINT AND WAS IN AGREEMENT WITH GOING "HOME" TO THE RESIDENTIAL TODAY. CM CALLED SHAVON LAN, [place] [phone], LEFT TELEPHONE MESSAGE NOTIFING OF PT'S DISCHARGE BACK TO THE RESIDENTIAL WITH CM CONTACT INFORMATION FOR ANY QUESTIONS. NURSE REPORT TO BE CALLED TO [facility], . PT TO TRANSPORT VIA AMBULANCE. Human Resources Office Assistant: Anjum Archer
[2016-07-22] MEDS ORDERED: IPRAT-ALBUT 0.5-3 ML UPD (10:06)
[2016-07-22] MEDS ORDERED: HUMALOG 30100 UNITS/ SC (10:18)
[2016-07-22 12:25] VITALS: BP 129/101
--- NOTE | 2016-07-22 12:40 | NUR ---
1115- CALLED REPORT TO MANOLO KNUTSON AT [facility] PT IS BEING TRANSFERRED TO. INFORMED EAMON FRENCH THAT I WOULD LEAVE IV TO RIGHT FOREARM IN, MANOLO RN AGREED. WHEN TALKING TO [facility] THEY STATED TO GO AHEAD AND LEAVE IV IN. 1135- CALLED EAMON FRENCH AT [facility] TO INFORM HER OF PTS BS AND THAT I WENT AHEAD AND COVERED PT WITH SCHEDULED INSULIN. EAMON FRENCH STATED THAT WAS FINE. 1215- [facility] IS HERE ON UNIT TO GET PT. GAVE REPORT AND INFORMED THEM THAT I JUST GAVE PT INSULIN TO COVER BLOOD SUGAR ORDERED. PT WAS EATING [facility] ARRIVED, I ASKED THEM IF THEY WOULD LIKE ME TO GIVE THEM SOME APPLESAUCE SINCE PT JUST RECEIVED INSULIN, THEY STATED NO THEY WOULD GIVE THEM SOMETHING IF NEEDED. PT D/C WITH IV INTACT TO RIGHT FOREARM VIA STRETCHER. PT UNABLE TO SIGN D/C INSTRUCTIONS. D/C PAPERWORK PLACED IN CHART.
--- NOTE | 2016-07-23 07:15 | DS ---
PATIENT:RUBIN MCFARLAND :[birth year] MEDICAL RECORD: [id number] DISCHARGE SUMMARY ADMISSION DATE: 07/16/16 DISCHARGE DATE: 07/22/16 HISTORY OF PRESENT ILLNESS: Mr. Mcfarland is an unfortunate 65-year-old black male with end-stage renal disease, severe peripheral vascular disease, multiple amputations, and is blind, chronically confined at the custodial in [place]. Admitted from the [place] Emergency Room with hypotension and pneumonia on chest x-ray. HOSPITAL COURSE: The patient received a course of antibiotics and his last chest x-ray was stable. He was made a DNR and has been such on a chronic basis. He has a left upper cortex that was used for acute dialysis which he tolerated well and had replacement of potassium and phosphorus deficits during this time. At the time of discharge, his blood sugar was stable. His mental status was to baseline and he will resume his [place] dialysis. He was evaluated by speech therapy that did reveal aspiration with thin liquids. He was placed on a thick liquid renal diet and tolerated this better. DISCHARGE DIAGNOSES: 1. Pneumonia, possible aspiration. 2. Swallowing difficulty, improving. 3. End-stage renal disease, chronic dialysis. 4. Blindness. 5. Diabetes mellitus. 6. Peripheral vascular disease. 7. Poor social situation. 8. Chronic anemia. 9. Hypophosphatemia. PLAN: The patient will be discharged today. He will go back to the [facility] on a thick liquid renal diet. He will continue his DNR status. He will resume his [place] dialysis status. He will resume being out of bed as tolerated. DISCHARGE MEDICATIONS: Will be NPH insulin 9 b.i.d. He will resume Epogen in the dialysis unit, ProAmatine 10 t.i.d. He will be on Zocor 10 at bedtime, baby aspirin 1 daily, Protonix 40 mg daily and will continue his Reglan 5 mg a.c. and at bedtime, and Tylenol on a p.r.n. basis. TRANSINT:[id number] Voice Confirmation ID: [id number] DOCUMENT ID: [id number] RUBIN NGUYEN MD at 0715 CC: [id number] DICTATION DATE: 07/22/16811 ELECTRIC BLASTING CAP ASSEMBLER: 07/22/16 2254 DIS IN 07/22/16 [facility] [address] [place] [place] [address]
== END 2016-07-22 12:30 | DRG 177 ==
LOC: D.ICU 22:18 → D.M2 22:18
PROVIDERS: Internal Medicine Nephrology; ADMIT Internal Medicine Nephrology
DX: J69.0 Pneumonitis due to inhalation of food and vomit (principal); N18.6 End stage renal disease; I13.2 Hypertensive heart and chronic kidney disease with heart failure and with stage 5 chronic kidney disease, or end stage renal disease; E11.22 Type 2 diabetes mellitus with diabetic chronic kidney disease; Z99.2 Dependence on renal dialysis; E11.65 Type 2 diabetes mellitus with hyperglycemia; K21.9 Gastro-esophageal reflux disease without esophagitis; Z66 Do not resuscitate; I25.10 Atherosclerotic heart disease of native coronary artery without angina pectoris; I73.9 Peripheral vascular disease, unspecified; I95.9 Hypotension, unspecified; Z89.512 Acquired absence of left leg below knee; Z89.511 Acquired absence of right leg below knee; Z87.891 Personal history of nicotine dependence